=== PATIENT | male | born 1995 | race Hispanic/Latino ===

== ENCOUNTER 2020-12-30 12:12 | Inpatient (IN) | payer BC, SELFPAY ==
[2020-12-30 12:47] LABS: #Monocytes 0.3 10x3/uL (0.0-1.1); #Neutrophils 6.2 10x3/uL (1.5-8.4); %Basophils 0.1 % (0.0-2.0); %Eosinophils 0.1 % (0.0-6.0); %Lymphocytes 7.1 % (18.0-47.0); %Monocytes 4.3 % (0.0-10.0); %Neutrophils 87.1 % (40.0-75.0); Hemoglobin 14.7 g/dL (13.5-17.5); Mean Corpuscular HGB CONC 33.3 g/dL (32.0-36.0); Mean Corpuscular Hemoglobin 27.4 pg (27.0-33.0); Mean Corpuscular Volume 82.1 fl (81.2-95.1); Mean Platelet Volume 9.8 fl (7.4-10.4); Platelet Count 210 10x3/uL (150-450); RBC Distribution Width 13.5 % (11.5-14.5); Red Blood Cell (RBC) Count 5.37 10x6/uL (4.32-5.72); White Blood Cell (WBC) Count 7.2 10x3/uL (3.5-10.5)
[2020-12-30 12:58] LABS: ALT (SGPT) 18 U/L (8-55); AST (SGOT) 27 U/L (5-34); Albumin 3.8 g/dL (3.5-5.0); Alkaline Phosphatase 74 U/L (40-110); Anion Gap 14 mmol/L (10-20); BUN (Urea Nitrogen) 11 mg/dL (8.9-20.6); Calc. Creatinine Clearance 0 mL/min (70-130); Calcium 9.1 mg/dL (7.8-10.44); Carbon Dioxide 20 mmol/L (22-29); Chloride 105 mmol/L (98-107); Globulin 3.4 g/dL (2.4-3.5); Glucose 101 mg/dL (70-105); Potassium 4.4 mmol/L (3.5-5.1); Protein, Total 7.2 g/dL (6.0-8.3); Sodium 135 mmol/L (136-145)
[2020-12-30] MEDS ORDERED: Dexamethasone 10 MG/ML VIAL ONE (13:24)
[2020-12-30] MEDS ORDERED: Acetaminophen 325 MG TAB PO PRN (16:57)
[2020-12-30] MEDS ORDERED: Ondansetron PF 4 MG/2 ML Vial IVP PRN (16:57)
[2020-12-30] MEDS ORDERED: Ventolin HFA Inhaler 60 PUFF INHALER INH PRN (17:00)
[2020-12-30] MEDS ORDERED: Enoxaparin Sodium 40 MG/0.4 ML SYRINGE SC SCH (17:15)
[2020-12-30 18:47] VITALS: BMI 37.6
[2020-12-31 05:59] LABS: #Monocytes 0.2 10x3/uL (0.0-1.1); #Neutrophils 3.4 10x3/uL (1.5-8.4); %Basophils 0.2 % (0.0-2.0); %Lymphocytes 10.3 % (18.0-47.0); %Monocytes 5.5 % (0.0-10.0); %Neutrophils 82.1 % (40.0-75.0); Hemoglobin 15.1 g/dL (13.5-17.5); Mean Corpuscular HGB CONC 33.1 g/dL (32.0-36.0); Mean Corpuscular Hemoglobin 27.4 pg (27.0-33.0); Mean Corpuscular Volume 82.6 fl (81.2-95.1); Mean Platelet Volume 10.4 fl (7.4-10.4); Platelet Count 229 10x3/uL (150-450); RBC Distribution Width 13.4 % (11.5-14.5); Red Blood Cell (RBC) Count 5.52 10x6/uL (4.32-5.72); White Blood Cell (WBC) Count 4.2 10x3/uL (3.5-10.5)
[2020-12-31 06:01] LABS: Anion Gap 17 mmol/L (10-20); BUN (Urea Nitrogen) 17 mg/dL (8.9-20.6); Calc. Creatinine Clearance 229 mL/min (70-130); Calcium 9.5 mg/dL (7.8-10.44); Carbon Dioxide 20 mmol/L (22-29); Chloride 106 mmol/L (98-107); Glucose 112 mg/dL (70-105); Sodium 138 mmol/L (136-145)
[2020-12-31] MEDS ORDERED: Dexamethasone 6 MG in Sodium Chloride 0.9% 50 ML IVPB SCH (09:00)
[2020-12-31] MEDS ORDERED: Dexamethasone 20 MG/5 ML VIAL SLOW IVP SCH (09:00)
[2020-12-31] MEDS: Ascorbic Acid 500 mg Chewable Tablet PO SCH (09:45)
[2020-12-31] MEDS: Cholecalciferol (Vitamin D3) 400 UNITS TAB PO SCH (09:45)
[2020-12-31] MEDS: Zinc Sulfate 220 MG CAP PO SCH (09:45)
[2020-12-31] MEDS: Enoxaparin Sodium 40 MG/0.4 ML SYRINGE SC SCH (20:53)
[2020-12-31] MEDS: Dexamethasone 20 MG/5 ML VIAL SLOW IVP SCH (20:53)
[2021-01-01] MEDS ORDERED: Benzonatate 100 MG CAP PO PRN (09:12)
[2021-01-01] MEDS ORDERED: Pseudoephedrine HCl 30 MG TAB PO PRN (09:12)
[2021-01-01] MEDS: Cholecalciferol (Vitamin D3) 400 UNITS TAB PO SCH (09:46)
[2021-01-01] MEDS: Zinc Sulfate 220 MG CAP PO SCH (09:46)
[2021-01-01] MEDS: Ascorbic Acid 500 mg Chewable Tablet PO SCH (09:46)
[2021-01-01] MEDS: Dexamethasone 20 MG/5 ML VIAL SLOW IVP SCH ×2 (09:47→20:23)
[2021-01-01] MEDS ORDERED: Fluticasone Propionate Nasal Spray 16 gm Bottle NASAL SCH (10:00)
[2021-01-01] MEDS: Enoxaparin Sodium 40 MG/0.4 ML SYRINGE SC SCH (20:23)
[2021-01-01] MEDS: guaiFENesin/DM ER PO SCH (20:28)
[2021-01-02] MEDS: Ascorbic Acid 500 mg Chewable Tablet PO SCH (10:20)
[2021-01-02] MEDS: Cholecalciferol (Vitamin D3) 400 UNITS TAB PO SCH (10:20)
[2021-01-02] MEDS: Dexamethasone 20 MG/5 ML VIAL SLOW IVP SCH ×2 (10:22→22:59)
[2021-01-02] MEDS: guaiFENesin/DM ER PO SCH ×2 (10:22→22:59)
[2021-01-02] MEDS: Zinc Sulfate 220 MG CAP PO SCH (10:23)
[2021-01-02] MEDS: Fluticasone Propionate Nasal Spray 16 gm Bottle NASAL SCH (19:46)
[2021-01-02] MEDS ORDERED: Dexamethasone 20 MG/5 ML VIAL ONE (21:42)
[2021-01-02] MEDS: Enoxaparin Sodium 40 MG/0.4 ML SYRINGE SC SCH (22:58)
[2021-01-03] MEDS: Ascorbic Acid 500 mg Chewable Tablet PO SCH (09:47)
[2021-01-03] MEDS: Dexamethasone 20 MG/5 ML VIAL SLOW IVP SCH (09:48)
[2021-01-03] MEDS: guaiFENesin/DM ER PO SCH ×2 (09:48→21:14)
[2021-01-03] MEDS: Zinc Sulfate 220 MG CAP PO SCH (09:48)
[2021-01-03] MEDS: Cholecalciferol (Vitamin D3) 400 UNITS TAB PO SCH (09:48)
[2021-01-03] MEDS: Fluticasone Propionate Nasal Spray 16 gm Bottle NASAL SCH (11:09)
[2021-01-03] MEDS: Enoxaparin Sodium 40 MG/0.4 ML SYRINGE SC SCH (21:14)
[2021-01-04] MEDS: Ascorbic Acid 500 mg Chewable Tablet PO SCH (08:20)
[2021-01-04] MEDS: Zinc Sulfate 220 MG CAP PO SCH (08:20)
[2021-01-04] MEDS: guaiFENesin/DM ER PO SCH ×2 (08:20→22:04)
[2021-01-04] MEDS: Cholecalciferol (Vitamin D3) 400 UNITS TAB PO SCH (08:20)
[2021-01-04] MEDS: Fluticasone Propionate Nasal Spray 16 gm Bottle NASAL SCH (08:21)
[2021-01-04] MEDS ORDERED: Dexamethasone 20 MG/5 ML VIAL SLOW IVP SCH (09:00)
[2021-01-04] MEDS: Enoxaparin Sodium 40 MG/0.4 ML SYRINGE SC SCH (22:04)
[2021-01-05] MEDS: Ascorbic Acid 500 mg Chewable Tablet PO SCH (10:20)
[2021-01-05] MEDS: Zinc Sulfate 220 MG CAP PO SCH (10:20)
[2021-01-05] MEDS: Cholecalciferol (Vitamin D3) 400 UNITS TAB PO SCH (10:20)
[2021-01-05] MEDS: Dexamethasone 20 MG/5 ML VIAL SLOW IVP SCH (10:21)
[2021-01-05] MEDS: guaiFENesin/DM ER PO SCH ×2 (10:21→22:08)
[2021-01-05] MEDS: Fluticasone Propionate Nasal Spray 16 gm Bottle NASAL SCH (10:22)
[2021-01-05] MEDS: Enoxaparin Sodium 40 MG/0.4 ML SYRINGE SC SCH (22:07)
[2021-01-06] MEDS: Cholecalciferol (Vitamin D3) 400 UNITS TAB PO SCH (09:45)
[2021-01-06] MEDS: Ascorbic Acid 500 mg Chewable Tablet PO SCH (09:45)
[2021-01-06] MEDS: Fluticasone Propionate Nasal Spray 16 gm Bottle NASAL SCH (09:46)
[2021-01-06] MEDS: Dexamethasone 20 MG/5 ML VIAL SLOW IVP SCH (09:46)
[2021-01-06] MEDS: Zinc Sulfate 220 MG CAP PO SCH (09:47)
[2021-01-06] MEDS: guaiFENesin/DM ER PO SCH ×2 (09:47→21:25)
[2021-01-06] MEDS: Enoxaparin Sodium 40 MG/0.4 ML SYRINGE SC SCH (21:25)
[2021-01-07] MEDS: Cholecalciferol (Vitamin D3) 400 UNITS TAB PO SCH (08:52)
[2021-01-07] MEDS: Dexamethasone 20 MG/5 ML VIAL SLOW IVP SCH (08:52)
[2021-01-07] MEDS: Ascorbic Acid 500 mg Chewable Tablet PO SCH (08:52)
[2021-01-07] MEDS: Zinc Sulfate 220 MG CAP PO SCH (08:53)
[2021-01-07] MEDS: guaiFENesin/DM ER PO SCH (08:54)
[2021-01-07] MEDS: Fluticasone Propionate Nasal Spray 16 gm Bottle NASAL SCH (08:54)
[2021-01-07 17:15] VITALS: BP 134/77; TEMP 97.2
== END 2021-01-07 18:45 | disposition home or self-care (01) | DRG 177 ==
LOC: CSHERS 12:12 → CSHTELE 18:41
PROVIDERS: ADMIT Internal Medicine; ATTEND Family Medicine
PROC: 8E0ZXY6 Isolation (ICD-10-PCS; principal; 2020-12-30)
DX: U07.1 COVID-19 (principal); J12.82 Pneumonia due to coronavirus disease 2019; J96.01 Acute respiratory failure with hypoxia; J45.909 Unspecified asthma, uncomplicated
CPT/HCPCS: 36415; 36416; 71045; 80048; 80053; 85025; 85379; 86140; 94760; 96374; J1100; J1650